=== PATIENT | male | born 1965 | race Hispanic/Latino ===

== ENCOUNTER → 2021-11-05 | Day surgery (SDC) | payer BC ==
[~2021-11-05] MED LIST: FENTANYL CITRATE/PF 100MCG/2 ML INJ ONE; METFORMIN HCL500 MG PO; MULTI-VITAMIN1 EACH PO; SODIUM CHLORIDE 0.9% 50ML 50 ML ONE; VITAMIN B COMP1 EACH PO; VITAMIN C500 MG PO
[2021-11-05 11:26] VITALS: BP 143/85
== END | disposition home or self-care (01) ==
LOC: OR 08:36
PROVIDERS: ATTEND Specialist
DX: S83.231A Complex tear of medial meniscus, current injury, right knee, initial encounter (principal); M10.9 Gout, unspecified; M94.261 Chondromalacia, right knee; X58.XXXA Exposure to other specified factors, initial encounter; Z01.810 Encounter for preprocedural cardiovascular examination; Z79.899 Other long term (current) drug therapy; Z79.84 Long term (current) use of oral hypoglycemic drugs
CPT/HCPCS: 29881; 93005; J0690; J3010